=== PATIENT | male | born 1985 | race African-American/Black ===

== ENCOUNTER 2017-08-09 13:18 | Emergency (ER) | payer BC, OTHER ==
[~2017-08-09] VITALS: Ht 170.2 cm; Wt 81.7 kg
[~2017-08-09 13:18] MED LIST: BACTRIM DS TAB1 EACH PO; CIPROFLOXACIN500 M1 PO; IBUPROFEN 600600 M1 PO; IBUPROFEN 800800 M1 PO; NORCO 5-325 TA1 EACH PO; NYAMYC15 GM TOP
[2017-08-09] MEDS ORDERED: NYAMYC15 GM TOP (13:28)
[2017-08-09] MEDS ORDERED: VIBRAMYCIN 100100 MG PO (13:28)
[2017-08-09 13:31] VITALS: BP 121/77
== END 2017-08-09 13:44 | disposition home or self-care (01) ==
LOC: ER 13:18
DX: L73.9 Follicular disorder, unspecified (principal); F17.210 Nicotine dependence, cigarettes, uncomplicated